=== PATIENT | male | born 1955 | race Caucasian/White ===

== ENCOUNTER 2016-08-25 20:31 | Emergency (ER) | payer OTHER ==
[2016-08-25 20:46] VITALS: TEMP 97.5
--- NOTE | 2016-08-25 21:40 | EDPHY ---
H & P Stated Complaint: left carpel tunnel release Tuesday, fell on left wrist tonight Time Seen by Provider: 08/25/16 21:01 HPI/ROS: CHIEF COMPLAINT: left hand complaint HISTORY OF PRESENT ILLNESS: 61-year-old male presents emergency department complaining of left hand pain. Patient had a carpal tunnel release 5 days ago, he tripped and fell over a curb tonight landing on his left hand. Patient reports pain and bleeding from his dressing. Dr. Mercedes did his surgery, he has a cancer patient. He denies numbness or tingling that is new in this hand since the fall. No head strike, no neck pain, no other complaints. REVIEW OF SYSTEMS: A comprehensive 10 point review of systems is otherwise negative aside from elements mentioned in the history of present illness. Source: Patient Exam Limitations: No limitations - Personal History Current Tetanus/Diphtheria Vaccine: Yes Current Tetanus Diphtheria and Acellular Pertussis (TDAP): Yes Tetanus Vaccine Date: 2014 - Medical/Surgical History Hx Asthma: No Hx Chronic Respiratory Disease: No Hx Diabetes: No Hx Cardiac Disease: Yes Hx Renal Disease: No Hx Cirrhosis: No Hx Alcoholism: No Hx HIV/AIDS: No Hx Splenectomy or Spleen Trauma: No Other PMH: HTN, hypothyroidism, R rot cuff repair, sinus/nasal reconstruction, TURP, L carpal tunnel release - Social History Smoking Status: Never smoked - Physical Exam Exam: GEN: Awake, alert, oriented, no acute distress RESP: nl resp effort MSK: Left fingers with good cap refill, sensation intact to light touch SKIN: 3 cm incision to palm of left hand open Constitutional: Initial Vital Signs Temperature (C) 36.4 C 08/25/16 20:43 Heart Rate 64 08/25/16 20:43 Respiratory Rate 14 08/25/16 20:43 Blood Pressure 130/68 H 08/25/16 20:43 O2 Sat (%) 93 08/25/16 20:43 O2 Delivery Mode Room Air Allergies/Adverse Reactions: No Known Allergies Allergy (Unverified 08/25/16 20:42) Home Medications: Medication Instructions Recorded [place] Thyroid 08/25/16 Atenolol 08/25/16 FLUoxetine 08/25/16 Medical Decision Making Procedures: Sutures removed from carpal tunnel incision, Steri-Strips placed, sterile dressing placed. ED Course/Re-evaluation: 940pm- Dr. Mercedes paged 950pm- I spoke with Dr. Mercedes's nurse practitioner. She is recommending closing the incision with Steri-Strips. They will see him in the office tomorrow at 10 :40 a.m.. Departure - Departure Disposition: Home, Routine, Self-Care Clinical Impression: Encounter for postoperative wound check Condition: Good Instructions: Acute Wound Care (ED) Additional Instructions: Keep your dressing in place. Follow up tomorrow at Dr. Mercedes's office at 1040am. Referrals: Mago Moya [Other] - As per Instructions
[2016-08-25 21:47] VITALS: BP 130/68; PULSE 65; RESP 16; O2SAT 95
== END 2016-08-25 22:37 | disposition home or self-care (01) ==
DX: Z48.01 Encounter for change or removal of surgical wound dressing (principal); I10 Essential (primary) hypertension